=== PATIENT | male | born 1980 | race Caucasian/White ===

== ENCOUNTER 2023-09-15 08:24 | Outpatient (CLI) | payer BC ==
[2023-09-15 15:41] LABS: BASOPHILS % (AUTO) 0.7 %; EOSINOPHILS # (AUTO) 0.2 10^3/uL (0.0-0.7); EOSINOPHILS % (AUTO) 4.4 %; HCT - HEMATOCRIT 48.1 % (42.0-52.0); HGB - HEMOGLOBIN 15.8 g/dL (14.0-18.0); LYMPHOCYTES # (AUTO) 1.8 10^3/uL (1.5-3.5); LYMPHOCYTES % (AUTO) 32.9 %; MEAN CORPUSCULAR HGB CONC 32.8 g/dL (32.0-36.0); MEAN CORPUSCULAR VOLUME 88.3 fL (80.0-94.0); MONOCYTES # (AUTO) 0.4 10^3/uL (0.0-1.0); MONOCYTES % (AUTO) 7.6 %; PLT - PLATELET COUNT 326 10^3/uL (130-450); RED BLOOD COUNT 5.45 10^6/uL (4.70-6.10); RED CELL DISTRIBUTION WIDTH 13.4 % (12.0-15.0); WHITE BLOOD COUNT 5.5 x10^3/uL (4.8-10.8)
[2023-09-15 15:47] LABS: ESTIMATED AVERAGE GLUCOSE 94 mg/dL (70-100); HEMOGLOBIN A1c% 4.9 % (4.27-6.07)
[2023-09-15 16:18] LABS: ALBUMIN 5.1 g/dL (3.2-5.5); ALBUMIN/GLOBULIN RATIO 1.7 (1.0-2.2); ALKALINE PHOSPHATASE 66 IU/L (42-121); ALT ALANINE AMINOTRANSFERASE 47 IU/L (10-60); AST ASPARTATE AMINOTRANSFERASE 28 IU/L (10-42); BUN - BLOOD UREA NITROGEN 20 mg/dL (6-20); CALCIUM 10.1 mg/dL (8.5-10.3); CARBON DIOXIDE - CO2 28 mmol/L (21-32); CHLORIDE 103 mmol/L (101-111); CHOL/HDL RATIO 4.9 (<5.0); CHOLESTEROL 240 mg/dL; CREATININE 1.2 mg/dL (0.6-1.3); GFR - MDRD 67 (>89); GLUCOSE 100 mg/dL (74-104); HDL CHOLESTEROL 49 mg/dL; LDL CHOLESTEROL,CALCULATED 155 mg/dL; LDL/HDL RATIO 3.2 (<3.6); POTASSIUM 4.6 mmol/L (3.5-4.5); SODIUM 137 mmol/L (135-145); TOTAL PROTEIN 8.1 g/dL (6.4-8.9); TRIGLYCERIDES 179 mg/dL (48-352); VLDL CHOLESTEROL 36 mg/dL
[2023-09-15 16:30] LABS: THYROID STIMULATING HORMONE 1.01 uIU/mL (0.34-5.60)
== END 2023-09-15 08:25 | disposition home or self-care (01) ==
LOC: LAB.S 08:24
PROVIDERS: ATTEND Physician Assistant Medical
DX: Z13.9 Encounter for screening, unspecified (principal)
CPT/HCPCS: 36415; 80053; 80061; 83036; 83721; 84443; 85025